=== PATIENT | female | born 1990 | race Asian ===

== ENCOUNTER 2018-09-20 16:27 | Emergency (ER) | payer OTHER ==
[2018-09-20 16:30] VITALS: BP 129/78; PULSE 93; TEMP 98.6; BMI 40.7
--- NOTE | 2018-09-20 16:40 | PDOC ---
History of Present Illness - General Chief Complaint: Sore Throat Stated Complaint: SORE THROAT Time Seen by Provider: 09/20/18 16:39 - History of Present Illness Initial Comments: 09/20/18 17:00 The patient is a 28 year old female with no significant PMH who presents for evaluation of fever and sore throat. The patient reports a 1 day history of fevers with associated body aches and sore throat prompting her presentation to the ED for further evaluation. She notes that she took motrin today with improvement in her fever. She states that she was recently on antibiotics 1-2 weeks ago for a bronchitis. She otherwise denies difficulty swallowing, SOB, chest pain, cough, nausea, vomiting, abdominal pain, or changes with urination or bowel movements. Past History - Past Medical History Allergies/Adverse Reactions: Allergies Allergy/AdvReac Type Severity Reaction Status Date / Time doxycycline Allergy Verified 09/20/18 16:31 Home Medications: Ambulatory Orders NK [No Known Home Medication] 09/20/18 COPD: No CHF: No Other medical history: DENIES - Suicide/Smoking/Psychosocial Hx Smoking History: Never smoked Hx Alcohol Use: No Drug/Substance Use Hx: No Review of Systems - Review of Systems Comments:: 09/20/18 17:03 Constitutional: Fevers, Generalized Body Aches. No fatigue, HEENT: Sore throat. No Rhinorrhea, nasal congestion, visual changes Cardiovascular: No chest pain, syncope, palpitations, lightheadedness Respiratory: No Cough, SOB, Hemoptysis, Gastrointestinal: No Abdominal pain, Nausea, Vomiting, Constipation, Diarrhea, Melena Genitourinary: No Dysuria, Frequency, Urgency, Hesitancy, Hematuria, Flank pain Musculoskeletal: No Myalgia, arthralgia Skin: No rashes, itching, bruising, pallor Neurologic: No Headache, Dizziness, Numbness, Weakness, or Tingling Psychiatric: No Hallucinations. No SI or HI *Physical Exam - Vital Signs Last Vital Signs Temp Pulse Resp BP Pulse Ox 98.6 F 93 H 16 129/78 99 09/20/18 16:27 09/20/18 16:27 09/20/18 16:27 09/20/18 16:27 09/20/18 16:27 - Physical Exam Comments: 09/20/18 17:04 General Appearance: Nourished. No Apparent Distress HEENT: Pharyngeal Erythema, Tonsillar Exudate, Tonsillar Erythema Neck: No Cervical Lymphadenopathy Respiratory/Chest: Lungs Clear, Normal Breath Sounds. No Crackles, Rales, Rhonchi, Wheezing Cardiovascular: Regular Rhythm, Regular Rate. No Murmur, Gallops, Rubs Gastrointestinal/Abdominal: Normal Bowel Sounds, Soft. No Guarding, Rebound, Tenderness Musculoskeletal: No CVA Tenderness Extremity: Normal Capillary Refill Integumentary: Normal Color, Dry, Warm Neurologic: Fully Oriented, Alert, Normal Mood/Affect, Normal Response, 09/20/18 17:19 Medical Decision Making - Medical Decision Making 09/20/18 17:05 The patient is a 28 year old female with no significant PMH who presents for evaluation of fever and sore throat. Given the patient's history and physical exam, we will obtain a rapid strep and throat culture. We will continue to monitor and reassess while here in the ED. 09/20/18 17:21 Rapid strep is negative. The patient's symptoms are likely due to a viral syndrome. We are comfortable discharging the patient home in stable condition. Patient made aware of impression and plan, return precautions discussed including but not limited to worsening pain or symptoms, fevers, or signs of infection, chest pain, respiratory distress, inability to tolerate oral intake, dehydration, syncope, or neurologic changes. The patient is to follow up with PMD as recommended within 1 week, follow up information provided and the patient will call for an appointment. The patient is to take medications as instructed for duration of time and continue with supportive care, avoid triggers and precipitants. Patient is safe for outpatient follow-up. *DC/Admit/Observation/Transfer Diagnosis at time of Disposition: Sore throat - Discharge Dispostion Disposition: HOME Condition at time of disposition: Stable - Referrals - Patient Instructions Printed Discharge Instructions: DI for Viral Pharyngitis Additional Instructions: 1) Please follow-up with your primary care doctor in the next 2-3 days. Please call tomorrow to schedule a follow up appointment. If you cannot follow up with your doctor within 1 week please return to the Emergency Department for any urgent issues. 2) Your lab results were normal here in the ER. You may continue to use tylenol and motrin for pain relief and management of your fever. 3) If you have any worsening of symptoms or any other concerns please return to the ER immediately. Return if worsening symptoms including fevers, headache, vomiting, visual or hearing disturbances, abdominal pain, chest pain, shortness of breath, syncope, dehydration, inability to take things by mouth/vomiting, altered mental status, or worsening concerning symptoms. 4) Please continue taking your home medications as directed. Side effects may include upset stomach, abdominal pain, vomiting, or diarrhea. Do not drink alcohol with your medications. - Post Discharge Activity Forms/Work/School Notes: Back to Work
== END 2018-09-20 17:25 | disposition home or self-care (01) ==
LOC: FER 16:27
DX: J02.9 Acute pharyngitis, unspecified (principal)
CPT/HCPCS: 87070; 87077; 87880; 99281-25

== ENCOUNTER 2018-09-21 10:30 | Emergency (ER) | payer OTHER ==
--- NOTE | 2018-09-21 10:34 | PDOC ---
History of Present Illness - General Chief Complaint: Respiratory Stated Complaint: COUGH, VOMITING Time Seen by Provider: 09/21/18 10:32 History Source: Patient - History of Present Illness Initial Comments: 09/21/18 11:12 The patient is a 28 year old female with no reported significant PMHx who presents to the ED c/o fever. Patient states she measured her temperature this morning around 4-5 a.m. and it was 102. Patient took 600 mg of Motrin around 5: 30 and Tylenol around 8:30. Reports two episodes of NBNB emesis. Last PO intake yesterday morning. No abdominal cramping, dysuria/hematuria, increased urgency/frequency. Allergy: Doxycycline Surgical: none reported PMD: None - will refer to IM resident clinic Past History - Past Medical History Allergies/Adverse Reactions: Allergies Allergy/AdvReac Type Severity Reaction Status Date / Time doxycycline Allergy Verified 09/21/18 10:31 Home Medications: Ambulatory Orders Acetaminophen [Tylenol -] 1,000 mg PO ASDIR PRN 09/21/18 Amox-Tr/K Cl [Augmentin - 875Mg Tablet] 1 tab PO BID #14 tablet 09/21/18 Ibuprofen [Motrin -] 600 mg PO ASDIR 09/21/18 COPD: No CHF: No - Suicide/Smoking/Psychosocial Hx Smoking History: Never smoked Hx Alcohol Use: No Drug/Substance Use Hx: No Review of Systems - Review of Systems Constitutional: Yes: Fever, Other (Body aches). No: Chills Respiratory: Yes: Cough, Productive cough. No: Shortness of Breath, Hemoptysis Cardiac (ROS): No: Chest Pain, Lightheadedness, Syncope ABD/GI: Yes: Nausea, Vomiting. No: Constipated, Diarrhea : No: Burning, Dysuria *Physical Exam - Physical Exam General Appearance: Yes: Nourished, Appropriately Dressed HEENT: positive: Normal Voice, Hearing Grossly Normal, Other (B/L cobblestoning , R sided exudate, diffuse erythema). negative: Pale Conjunctivae, Sinus Tenderness, TM Bulging, TM Dull, TM Erythema Neck: positive: Trachea midline. negative: Lymphadenopathy (R), Lymphadenopathy (L) Respiratory/Chest: positive: Normal Breath Sounds, Decreased Breath Sounds Cardiovascular: positive: S1, S2, Tachycardia Vascular Pulses: Dorsalis-Pedis (R): 2+, Doralis-Pedis (L): 2+ Gastrointestinal/Abdominal: positive: Soft. negative: Tender Extremity: positive: Normal Capillary Refill, Normal Inspection Integumentary: positive: Normal Color, Dry, Warm Neurologic: positive: Fully Oriented, Alert ED Treatment Course - LABORATORY CBC & Chemistry Diagram: 09/21/18 11:27 09/21/18 11:27 Medical Decision Making - Medical Decision Making 09/21/18 11:34 28 year old female with fever. H/o evaluation yesterday for sore throat in our ED w/negative Rapid Strep. Continues to c/o fever, as well as 2 episodes of NBN emesis and headache c/w previous headaches. Febrile @ 103. other VS unremarkable. Pharyngeal erythema w/exudate. Frontal diagnosis: Viral syndrome, Gastritis/gastroenteritis, CMV/EBV, G/C, also consider PNA (h/o recent bronchitis with abx), PLAN: 1. Basic labs 2. EKG 3. CXR 4. Anti-pyretic Reassess. 09/21/18 12:18 UA shows 2+ Blood, LMP two weeks previous. 09/21/18 12:23 Leukocytosis 19.3 09/21/18 12:40 UA shows 2+ blood, 2-5 RBC, CPK pending 09/21/18 13:49 Patient reassessed @ bedside, continues to c/o headache. Will give Decadron for GUERRA and pharyngitis. CPK wnL 09/21/18 15:48 Patient symptomatically improved, ambulatory around unit, tolerating PO intake. Will discharge home with antibiotic for presumed bacterial pharyngitis (Strep culture pending). Clinical Impression: Bacterial Pharyngitis, possibly Streptococcus vs. G/C; possibly CMV/EBV I discussed the physical exam findings, ancillary test results and final diagnoses with the patient. I answered all of the patient's questions. The patient was satisfied with the care received and felt comfortable with the discharge plan and treatment plan. The patient will return to the Emergency Department with any new, persistent or worsening symptoms. *DC/Admit/Observation/Transfer Diagnosis at time of Disposition: Pharyngitis - Discharge Dispostion Disposition: HOME Condition at time of disposition: Stable Decision to Admit order: No - Prescriptions Prescriptions: Amox-Tr/K Cl [Augmentin - 875Mg Tablet] 1 tab PO BID #14 tablet - Referrals Schedule a call back: throat culture, urine culture, gc culture Referrals: Surya Blake MD [Staff Physician] - Stanislav Latham MD [Staff Physician] - - Patient Instructions Printed Discharge Instructions: DI for Pharyngitis/Tonsillopharyngitis -- Adult Additional Instructions: We have sent a antibiotic to your pharmacy. Please complete the entire antibiotic course. We have provided you a referral to a primary care doctor. Please make an appointment for evaluation in the next 5 days. Your care is not complete until you are evaluated by a primary care doctor. We have also provided a referral to a neurologist. Please make an appointment for evaluation should your headaches persist. Measure your temperature every 4-6 hours. Take Tylenol alternating with Motrin. Return to the Emergency Department for any new/worsening/concerning symptoms. - Post Discharge Activity Forms/Work/School Notes: Back to Work
[2018-09-21 10:35] VITALS: BMI 44.9
[2018-09-21] MEDS ORDERED: SODIUM CHLORIDE 0.9% 500 ML INFUS.BAG IV ONE ×2 (10:59→12:44)
[2018-09-21] MEDS ORDERED: ACETAMINOPHEN 1000 MG/100 ML VIAL (NON FORMULARY) IVPB ONE ×2 (10:59→13:49)
[2018-09-21] MEDS ORDERED: METOCLOPRAMIDE HCL INJECTION 10 MG/2 ML VIAL IVPUSH ONE (11:08)
[2018-09-21 11:31] LABS: EPITHELIAL CELLS MANY /hpf
[2018-09-21 11:41] LABS: HEMOGLOBIN 13.9 GM/dl (10.7-15.3); MCH 28.8 pg (25.7-33.7); MCHC 32.2 g/dl (32.0-36.0); MEAN CELL VOLUME 89.4 fl (80-96); MEAN PLT VOLUME 7.6 fl (7.5-11.1); PLATELET COUNT 333 K/MM3 (134-434); RDW 12.6 % (11.6-15.6); WHITE BLOOD COUNT 19.3 K/mm3 (4.0-10.8)
--- NOTE | 2018-09-21 11:42 | PDOC ---
History of Present Illness - General Chief Complaint: Respiratory Stated Complaint: COUGH, VOMITING Time Seen by Provider: 09/21/18 10:32 History Source: Patient Exam Limitations: No Limitations - History of Present Illness Initial Comments: 09/21/18 11:33 28 yo F with no pmhx here with c/o sore throat, cough myalgia, headache. was seen yesterday had a throat swab that was done and was negative. today here for repeat visit because fever 103. no sick contacts. no rash. no travel. no neck or back pain. does have chest tightness with cough. no dysuria. did have n /v x 2 last today. no abd pain. does have h/o migraines, similar to migraine headache she has had in the past. one new sexaul partner few weeks ago, no concerns for std. Past History - Past Medical History Allergies/Adverse Reactions: Allergies Allergy/AdvReac Type Severity Reaction Status Date / Time doxycycline Allergy Verified 09/24/18 10:59 Home Medications: Ambulatory Orders Acetaminophen [Tylenol -] 1,000 mg PO ASDIR PRN 09/21/18 Amox-Tr/K Cl [Augmentin - 875Mg Tablet] 1 tab PO BID #14 tablet 09/21/18 Ibuprofen [Motrin -] 400 mg PO ASDIR 09/21/18 Azithromycin [Zithromax 250mg Tablets -] 250 mg PO UTDICT #6 tab 09/24/18 COPD: No CHF: No Kidney Stones: Yes - Suicide/Smoking/Psychosocial Hx Smoking History: Never smoked Have you smoked in the past 12 months: No Information on smoking cessation initiated: No Hx Alcohol Use: No Drug/Substance Use Hx: No *Physical Exam - Vital Signs Last Vital Signs Temp Pulse Resp BP Pulse Ox 103.1 F H 116 H 19 119/82 99 09/21/18 10:30 09/21/18 10:30 09/21/18 10:30 09/21/18 10:30 09/21/18 10:30 ED Treatment Course - LABORATORY CBC & Chemistry Diagram: 09/21/18 11:27 09/21/18 11:27 - ADDITIONAL ORDERS Additional order review: Laboratory Results 09/21/18 09/21/18 11:00 11:00 Urine Color Yellow Urine Appearance Clear Urine pH 8.5 H Urine Protein 1+ H Urine Glucose (UA) Negative Urine Ketones Negative Urine Blood 2+ H Urine Nitrite Negative Urine Bilirubin Negative Urine Urobilinogen 0.2 Ur Leukocyte Esterase Negative Urine RBC 2-5 Urine WBC 2-5 Ur Transition Epith Cell Many Urine HCG, Qual Negative Medical Decision Making - Medical Decision Making 09/21/18 13:39 28 yo F w fever sore throat. recently neg strept diff mono, std , false negative. plan mono scrren repeat strept, ebv cmv will treat with abx based on appearance of tonsils and PE. *DC/Admit/Observation/Transfer Diagnosis at time of Disposition: Pharyngitis Qualifiers: Pharyngitis/tonsillitis etiology: streptococcus Qualified Code(s): J02.0 - Streptococcal pharyngitis - Discharge Dispostion Disposition: HOME Condition at time of disposition: Stable - Prescriptions Prescriptions: Amox-Tr/K Cl [Augmentin - 875Mg Tablet] 1 tab PO BID #14 tablet - Referrals Schedule a call back: throat culture, urine culture, gc culture Referrals: Surya Blake MD [Staff Physician] - Stanislav Latham MD [Staff Physician] - - Patient Instructions Printed Discharge Instructions: DI for Pharyngitis/Tonsillopharyngitis -- Adult Additional Instructions: We have sent a antibiotic to your pharmacy. Please complete the entire antibiotic course. We have provided you a referral to a primary care doctor. Please make an appointment for evaluation in the next 5 days. Your care is not complete until you are evaluated by a primary care doctor. We have also provided a referral to a neurologist. Please make an appointment for evaluation should your headaches persist. Measure your temperature every 4-6 hours. Take Tylenol alternating with Motrin. Return to the Emergency Department for any new/worsening/concerning symptoms. - Post Discharge Activity Forms/Work/School Notes: Back to Work
[2018-09-21] MEDS ORDERED: KETOROLAC TROMETHAMINE 30 MG/1 ML VIAL IVPUSH ONE (11:44)
--- NOTE | 2018-09-21 11:46 | PDOC ---
Attending Attestation - Resident Resident Name: Caren Lozano - ED Attending Attestation I have performed the following: I have examined & evaluated the patient, The case was reviewed & discussed with the resident, I agree w/resident's findings & plan, Exceptions are as noted - HPI HPI: 09/21/18 11:43 28 yo F with no pmhx here with c/o sore throat, cough myalgia, headache. was seen yesterday had a throat swab that was done and was negative. today here for repeat visit because fever 103. no sick contacts. no rash. no travel. no neck or back pain. does have chest tightness with cough. no dysuria. did have n /v x 2 last today. no abd pain. does have h/o migraines, similar to migraine headache she has had in the past. one new sexaul partner few weeks ago, no concerns for std - Physicial Exam PE: 09/21/18 11:43 awake alert NAD. throat with bilat tonssilar hypertrophy, exudate bilaterally kissing tonsils. no stridor. lungs clear bilat, heart reg tachycardia. abd soft nt nd.e xt wwp no edema. no rash. nuero alert oriented x 3. - Medical Decision Making 09/21/18 11:44 28 yo F with fever cough myalgia, exudative tonsillitis. plan monospot cmv ebv r /o mono, gc , ua labs iv hydration antiemetics cxr r/o pneumonia. 09/21/18 15:25 pt cxr negative. labs noted elevated wbc count. due to purulent tonsillitis will treat with augmentin despitte negative rapid strept. gonococcal sent and pending. mono screen and viral sent also. told to fu with [facility]. 09/21/18 15:26 feeling better headache improved. also given referral for nuero Heart Score/ECG Review #1 General ECG Interpretation: Sinus Rhythm, Normal Intervals, No acute ischemic changes Compared to previous ECG there are: Other (sinus tachycardia.)
[2018-09-21] MEDS ORDERED: METOCLOPRAMIDE HCL INJECTION 10 MG/2 ML VIAL ONE (11:49)
[2018-09-21] MEDS ORDERED: KETOROLAC TROMETHAMINE 30 MG/1 ML VIAL ONE (11:55)
[2018-09-21 11:56] LABS: ALBUMIN 3.8 g/dl (3.4-5.0); BILIRUBIN,TOTAL 0.7 mg/dl (0.2-1); CALCIUM 8.4 mg/dl (8.5-10); CREATININE 0.8 mg/dl (0.55-1.3); POTASSIUM 3.8 mmol/L (3.5-5.1); TOT PROT 8.5 g/dl (6.4-8.2)
[2018-09-21 12:44] LABS: PLATELET ESTIMATE ADEQUATE
[2018-09-21] MEDS ORDERED: DEXAMETHASONE SOD PHOSPHATE 10 MG/1 ML VIAL IVPUSH ONE (13:48)
[2018-09-21] MEDS ORDERED: DEXAMETHASONE SOD PHOSPHATE 10 MG/1 ML VIAL ONE (13:50)
[2018-09-21] MEDS ORDERED: ACETAMINOPHEN INJECTION 100 ML IVPB ONE (13:50)
[2018-09-21 14:02] VITALS: BP 116/59; PULSE 98; TEMP 98.8
[2018-09-22 10:12] LABS: CMV IgM < 30.0 AU/mL (0.0-29.9)
--- NOTE | 2018-09-22 13:27 | EKG ---
Test Reason : Blood Pressure : / mmHG Vent. Rate : 114 BPM Atrial Rate : 114 BPM P-R Int : 148 ms QRS Dur : 084 ms QT Int : 302 ms P-R-T Axes : 018 053 024 degrees QTc Int : 416 ms SINUS TACHYCARDIA OTHERWISE NORMAL ECG NO PREVIOUS ECGS AVAILABLE Confirmed by JOAO WINCHESTER MD ([id number]) on 09/22/2018 1:27:20 PM Referred By: JERMAINE GO Confirmed By:JOAO WINCHESTER MD
== END 2018-09-21 15:00 | disposition home or self-care (01) ==
LOC: FER 10:30
PROC: 3E0337Z Introduction of Electrolytic and Water Balance Substance into Peripheral Vein, Percutaneous Approach (ICD-10-PCS; principal; 2018-09-21)
PROC: 3E033NZ Introduction of Analgesics, Hypnotics, Sedatives into Peripheral Vein, Percutaneous Approach (ICD-10-PCS; 2018-09-21)
PROC: 3E033GC Introduction of Other Therapeutic Substance into Peripheral Vein, Percutaneous Approach (ICD-10-PCS; 2018-09-21)
PROC: 3E0333Z Introduction of Anti-inflammatory into Peripheral Vein, Percutaneous Approach (ICD-10-PCS; 2018-09-21)
DX: J02.9 Acute pharyngitis, unspecified (principal)
CPT/HCPCS: 36415; 71045-TC-FY; 80053; 81003; 81015; 82550; 84703; 85025; 86308; 86644; 86645; 86663; 87070; 87077; 87086; 87880; 93005; 99285-25; J0131; J1100

== ENCOUNTER 2018-09-24 10:55 | Emergency (ER) | payer OTHER ==
[2018-09-24 11:05] VITALS: BMI 39.8
[2018-09-24] MEDS ORDERED: SODIUM CHLORIDE 1,000 ML IV STA ×2 (11:09→13:34)
--- NOTE | 2018-09-24 11:09 | PDOC ---
History of Present Illness - General Chief Complaint: Pain Stated Complaint: THROAT PAIN, FEVER Time Seen by Provider: 09/24/18 11:07 History Source: Patient Exam Limitations: No Limitations Past History - Past Medical History Allergies/Adverse Reactions: Allergies Allergy/AdvReac Type Severity Reaction Status Date / Time doxycycline Allergy Verified 09/24/18 10:59 Home Medications: Ambulatory Orders Acetaminophen [Tylenol -] 1,000 mg PO ASDIR PRN 09/21/18 Amox-Tr/K Cl [Augmentin - 875Mg Tablet] 1 tab PO BID #14 tablet 09/21/18 Ibuprofen [Motrin -] 400 mg PO ASDIR 09/21/18 COPD: No CHF: No Kidney Stones: Yes - Suicide/Smoking/Psychosocial Hx Smoking History: Never smoked Have you smoked in the past 12 months: No Information on smoking cessation initiated: No Hx Alcohol Use: (social) Drug/Substance Use Hx: No *Physical Exam - Vital Signs Last Vital Signs Temp Pulse Resp BP Pulse Ox 101 F H 118 H 20 141/101 H 100 09/24/18 10:55 09/24/18 10:55 09/24/18 10:55 09/24/18 10:55 09/24/18 10:55 ED Treatment Course - LABORATORY CBC & Chemistry Diagram: 09/24/18 11:30 09/24/18 11:30 Medical Decision Making - Medical Decision Making 09/24/18 12:28 Lab results reviewed with patient. White count has improved, neutrophil predominance has resolved, indicating that she is improving. Symptoms are likely related to the mono, not the strep. She reports some improvement with treatment. Awaiting CT to further evaluate her neck. Will cont to monitor. 09/24/18 13:34 CT reviewed, no abscess formation. Will give patient second liter of fluids and then reassess for improvement. 09/24/18 13:43 Pt feeling much better, voice has improved. Results reviewed with her. Will DC after second liter and increase antibiotic to azithro. *DC/Admit/Observation/Transfer Diagnosis at time of Disposition: Pharyngitis Qualifiers: Pharyngitis/tonsillitis etiology: streptococcus Qualified Code(s): J02.0 - Streptococcal pharyngitis Mononucleosis Qualifiers: Infectious mononucleosis etiology: unspecified organism Infectious mononucleosis complication: without complication Qualified Code(s): B27.90 - Infectious mononucleosis, unspecified without complication - Discharge Dispostion Disposition: HOME Condition at time of disposition: Stable Decision to Admit order: No - Referrals - Patient Instructions Printed Discharge Instructions: DI for Mononucleosis-Adult, DI for Strep Throat - Post Discharge Activity
[2018-09-24] MEDS ORDERED: guaiFENesin/CODEINE 10 ML UNIT-DOSE CUPS PO ONE (11:38)
[2018-09-24] MEDS ORDERED: AZITHROMYCIN IVPB 500 MG in DEXTROSE 5%-WATER - 250 ML IVPB ONE (11:38)
[2018-09-24] MEDS ORDERED: DEXAMETHASONE SOD PHOSPHATE 10 MG/1 ML VIAL IVPUSH ONE (11:38)
[2018-09-24] MEDS ORDERED: KETOROLAC TROMETHAMINE 15 MG/ML VIAL IVPUSH ONE (11:39)
[2018-09-24] MEDS ORDERED: guaiFENesin/CODEINE 10 ML UNIT-DOSE CUPS ONE (11:49)
[2018-09-24] MEDS ORDERED: KETOROLAC TROMETHAMINE 15 MG/ML VIAL ONE (11:49)
[2018-09-24] MEDS ORDERED: DEXAMETHASONE SOD PHOSPHATE 10 MG/1 ML VIAL ONE (11:49)
[2018-09-24] MEDS ORDERED: AZITHROMYCIN 500 MG VIAL IVPB ONE (11:50)
[2018-09-24 11:57] LABS: BASO % 0.3 % (0-2.0); EOS % 0.1 % (0-4.5); HEMATOCRIT 41.9 % (32.4-45.2); HEMOGLOBIN 13.9 GM/dl (10.7-15.3); LYMPH % 9.4 % (8-40); MCH 29.3 pg (25.7-33.7); MCHC 33.2 g/dl (32.0-36.0); MEAN PLT VOLUME 7.6 fl (7.5-11.1); MONO % 15.2 % (3.8-10.2); PLATELET COUNT 303 K/MM3 (134-434); RBC 4.76 M/mm3 (3.60-5.2); RDW 12.4 % (11.6-15.6); WHITE BLOOD COUNT 14.7 K/mm3 (4.0-10.8)
[2018-09-24 12:07] LABS: ALBUMIN 3.3 g/dl (3.4-5.0); BILIRUBIN,TOTAL 0.6 mg/dl (0.2-1); CALCIUM 8.3 mg/dl (8.5-10); CREATININE 0.7 mg/dl (0.55-1.3); POTASSIUM 3.8 mmol/L (3.5-5.1); TOT PROT 7.9 g/dl (6.4-8.2)
[2018-09-24 14:25] VITALS: BP 127/81; PULSE 90; TEMP 98.7
[2018-09-24] MEDS ORDERED: ACETAMINOPHEN 1000 MG/100 ML VIAL (NON FORMULARY) IVPB ONE (14:51)
[2018-09-24] MEDS ORDERED: ACETAMINOPHEN INJECTION 100 ML IVPB ONE (14:51)
[2018-09-25 14:13] LABS: EPSTEIN BARR ANTIBODY IgM <36.0 U/mL (0.0-35.9)
== END 2018-09-24 16:15 | disposition home or self-care (01) ==
LOC: FER 10:55
PROC: 3E033NZ Introduction of Analgesics, Hypnotics, Sedatives into Peripheral Vein, Percutaneous Approach (ICD-10-PCS; principal; 2018-09-24)
PROC: 3E03329 Introduction of Other Anti-infective into Peripheral Vein, Percutaneous Approach (ICD-10-PCS; 2018-09-24)
PROC: 3E033GC Introduction of Other Therapeutic Substance into Peripheral Vein, Percutaneous Approach (ICD-10-PCS; 2018-09-24)
PROC: 3E0337Z Introduction of Electrolytic and Water Balance Substance into Peripheral Vein, Percutaneous Approach (ICD-10-PCS; 2018-09-24)
DX: B27.90 Infectious mononucleosis, unspecified without complication (principal); J02.0 Streptococcal pharyngitis
CPT/HCPCS: 36415; 70491-TC; 80053; 83605; 84703; 85025; 86665; 87040; 99285-25; J0131; J1100; J7030

== ENCOUNTER 2019-01-17 18:49 | Emergency (ER) | payer OTHER ==
[2019-01-17 18:58] VITALS: BMI 39.8
[2019-01-17] MEDS ORDERED: SODIUM CHLORIDE 1,000 ML IV STA ×2 (19:38→20:45)
[2019-01-17] MEDS ORDERED: KETOROLAC TROMETHAMINE 30 MG/1 ML VIAL IVPUSH ONE (19:38)
[2019-01-17] MEDS ORDERED: KETOROLAC TROMETHAMINE 30 MG/1 ML VIAL ONE (20:04)
[2019-01-17] MEDS ORDERED: ACETAMINOPHEN 1000 MG/100 ML VIAL (NON FORMULARY) IVPB ONE (20:28)
[2019-01-17] MEDS ORDERED: ACETAMINOPHEN INJECTION 100 ML IVPB ONE (20:33)
[2019-01-17] MEDS ORDERED: methylPREDNISolone NA SUCC 125 MG/2 ML VIAL IVPB ONE (20:42)
--- NOTE | 2019-01-17 20:50 | PDOC ---
Documentation entered by Ene Hardy SCRIBE, acting as scribe for Romain Funk MD. Romain Funk MD: This documentation has been prepared by the scribeAntony Lincy, SCRIBE, under my direction and personally reviewed by me in its entirety. I confirm that the documentation accurately reflects all work, treatment, procedures, and medical decision making performed by me. History of Present Illness - General Chief Complaint: Cold Symptoms Stated Complaint: FEVER,CHILLS,NAUSEA,SORE THROAT History Source: Patient Exam Limitations: No Limitations - History of Present Illness Initial Comments: 01/17/19 19:41 The patient is a 45 year old female with a past medical history significant for Kidney stone who presents to the emergency department with weakness, body aches , fever, and a sore throat. The patient reports yesterday morning she recalled having a low grade temperature, patient reports shes been alternating Tylenol and Motrin, with mild relief. The patient states she was able to go to work, however when she got home she recalled a temperature of 102. The patient reports all day today shes been experiencing weakness, body aches, nausea with one episodes of vomiting, sore throat and congestion. The patient reports sick contact with a coworker who was diagnosed with strep throat and was on antibodies. Denies cough, chest pain or shortness of breath. Allergies: doxycycline Social history: No reported use of tobacco or recreational drugs. Social use of alcohol. Surgical history: No surgical history reported Review of system CONSTITUTIONAL: +fever, weakness and malaise. Absent: chills, diaphoresis. HEENT: +congestion, sore throat Absent: rhinorrhea, difficulty swallowing, mouth swelling, ear pain, eye pain, visual Changes CARDIOVASCULAR: Absent: chest pain, syncope, palpitations, irregular heart rate, lightheadedness , peripheral edema RESPIRATORY: Absent: cough, shortness of breath, dyspnea with exertion, orthopnea, wheezing, stridor, hemoptysis GASTROINTESTINAL: Absent: abdominal pain, abdominal distension, nausea, vomiting, diarrhea, constipation, melena, hematochezia GENITOURINARY: Absent: dysuria, frequency, urgency, hesitancy, hematuria, flank pain, genital pain MUSCULOSKELETAL: +body aches. Absent: arthralgia, joint swelling SKIN: Absent: rash, itching, pallor HEMATOLOGIC/IMMUNOLOGIC: Absent: easy bleeding, easy bruising, lymphadenopathy, frequent infections ENDOCRINE: Absent: unexplained weight gain, unexplained weight loss, heat intolerance, cold intolerance NEUROLOGIC: Absent: headache, focal weakness or paresthesias, dizziness, unsteady gait, seizure, mental status changes, bladder or bowel incontinence PSYCHIATRIC: Absent: anxiety, depression, suicidal or homicidal ideation, hallucinations. Physical exam GENERAL: Well developed, well nourished. Awake and alert. No acute distress. HEENT: +throat is erythematous with exudate bilaterally. No masses. Normocephalic, atraumatic. PERRLA, EOMI. No conjunctival pallor. Sclera are non- icteric. Moist mucous membranes. NECK: +supple, with anterior cervical lymphadenopathy bilaterally. Full ROM. No JVD. CARDIOVASCULAR: Regular rate and rhythm. No murmurs, rubs, or gallops. PULMONARY: No evidence of respiratory distress. Lungs clear to auscultation bilaterally. ABDOMINAL: Soft. Non-tender. Non-distended. EXTREMITIES: No cyanosis. No clubbing. No edema. No calf tenderness. SKIN: No rashes. Warm and dry. MDM: Sore throat, fever, body aches since yesterday. Fever to 102 degrees. Mild intermittent nausea, vomited times once. No appetite. Minimal oral intake. No cough, abdominal pain, dysuria, vaginal bleeding or discharge. Physical exam with temperature of 99.7, bilateral exudative pharyngitis, no swelling or mass that might suggest peritonsillar retropharyngeal abscess. Bilateral anterior cervical nodes. Lungs clear. Cardiac without murmur. Abdomen benign. Skin clear without rash Colleague has strep pharyngitis. IV fluids, Toradol, observation pending culture results. 01/17/19 19:49 Past History - Past Medical History Allergies/Adverse Reactions: Allergies Allergy/AdvReac Type Severity Reaction Status Date / Time doxycycline Allergy Vomiting Verified 01/17/19 18:51 Home Medications: Ambulatory Orders Acetaminophen [Tylenol .Extra-Strength -] 1,000 mg PO ASDIR PRN 09/21/18 Ibuprofen [Motrin -] 600 mg PO ASDIR 09/21/18 Ondansetron [Zofran *Odt*] 4 mg SL TID PRN #10 od.tablet 01/17/19 predniSONE [Deltasone -] 40 mg PO DAILY #6 tablet 01/17/19 COPD: No CHF: No Kidney Stones: Yes - Psycho Social/Smoking Cessation Hx Smoking History: Never smoked Have you smoked in the past 12 months: No Hx Alcohol Use: Yes (socially) Drug/Substance Use Hx: No *Physical Exam - Vital Signs Last Vital Signs Temp Pulse Resp BP Pulse Ox 99.7 F H 110 H 19 147/92 99 01/17/19 18:50 01/17/19 18:50 01/17/19 18:50 01/17/19 18:50 01/17/19 18:50 Medical Decision Making - Medical Decision Making 01/17/19 20:47 28-year-old with probable acute viral pharyngitis. Systemic symptoms as well including low-grade fever, fatigue, malaise, and body aches. Rapid strep is negative. Culture is pending. Somewhat improved with intravenous fluids, Toradol, and Solu-Medrol given for sore throat and swelling of the posterior pharynx. Rest and close follow-up primary physician recommended, or return to ER if worse. Improved at discharge with family. No significant distress. To follow-up as directed or return to ER if worse. 01/17/19 23:25 Discharge - Discharge Information Problems reviewed: Yes Clinical Impression/Diagnosis: Acute viral pharyngitis Condition: Improved Disposition: HOME - Admission No - Additional Discharge Information Prescriptions: Ondansetron [Zofran *Odt*] 4 mg SL TID PRN #10 od.tablet PRN Reason: Nausea And/Or Vomiting predniSONE [Deltasone -] 40 mg PO DAILY #6 tablet - Follow up/Referral - Patient Discharge Instructions Patient Printed Discharge Instructions: DI for Viral Pharyngitis Additional Instructions: Rest, fluids, medication as directed. See primary doctor in 2 days if no improvement. - Post Discharge Activity Work/Back to School Note: Back to Work
[2019-01-17] MEDS ORDERED: methylPREDNISolone NA SUCC 125 MG/2 ML VIAL ONE (21:14)
[2019-01-17 21:25] VITALS: BP 141/85; PULSE 97; TEMP 99.2
== END 2019-01-17 21:49 | disposition home or self-care (01) ==
LOC: FER 18:49
PROC: 3E033NZ Introduction of Analgesics, Hypnotics, Sedatives into Peripheral Vein, Percutaneous Approach (ICD-10-PCS; principal; 2019-01-17)
PROC: 3E033GC Introduction of Other Therapeutic Substance into Peripheral Vein, Percutaneous Approach (ICD-10-PCS; 2019-01-17)
PROC: 3E0333Z Introduction of Anti-inflammatory into Peripheral Vein, Percutaneous Approach (ICD-10-PCS; 2019-01-17)
PROC: 3E0337Z Introduction of Electrolytic and Water Balance Substance into Peripheral Vein, Percutaneous Approach (ICD-10-PCS; 2019-01-17)
DX: J02.8 Acute pharyngitis due to other specified organisms (principal); B97.89 Other viral agents as the cause of diseases classified elsewhere; Z88.8 Allergy status to other drugs, medicaments and biological substances; N20.0 Calculus of kidney
CPT/HCPCS: 87070; 87077; 87880; 99284-25; J0131; J7030

== ENCOUNTER 2019-03-06 18:41 | Emergency (ER) | payer OTHER ==
[2019-03-06 18:56] VITALS: BP 125/80; PULSE 79; TEMP 98.5; BMI 38.9
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
== END 2019-03-06 20:17 | disposition home or self-care (01) ==
LOC: FER 18:41
CPT/HCPCS: 99281-25